=== PATIENT | female | born 1975 | race American Indian/Alaskan Native ===

== ENCOUNTER 2017-04-06 06:11 | Outpatient (CLI) | payer BC ==
--- NOTE | 2017-04-06 09:20 | XRay Report ---
ROUTINE CHEST, TWO VIEWS: Cough PA and lateral views demonstrate the heart and mediastinal contour to be of normal size and shape. The lungs are clear and fully expanded and the soft tissues and bony structures are normal. IMPRESSION: Normal study.
== END 2017-04-06 06:12 | disposition home or self-care (01) ==
LOC: XRAY 06:11
PROVIDERS: ATTEND Nurse Practitioner Family
DX: R05 Cough (principal)
CPT/HCPCS: 71020

== ENCOUNTER 2017-05-04 05:46 | Outpatient (CLI) | payer BC ==
--- NOTE | 2017-05-04 08:37 | Mammography Report ---
Screening mammogram: Routine views demonstrate a well circumscribed focal asymmetry in the inferomedial anterior left breast. The remaining breast pattern is heterogeneously dense, symmetrically distributed, and unremarkable. CAD used. Impression: Focal left asymmetry. Recommendation: This patient's prior studies the rest of comparison. The followup will be shielded within 30 days if made available. If no report is received left breast ultrasound recommended and additional compression imaging of the breast if necessary following the ultrasound. BI-RADS CATEGORY: 0 = Needs additional imaging evaluation ACR BI-RADS MAMMOGRAPHIC CODES: 0 = Needs additional imaging evaluation; 1 = Negative; 2 = Benign; 3 = Probably benign; 4 = Suspicious; 5 = Malignant; 6 = Known biopsy-proven malignancy COMMENT: 1. Dense breast tissue, i.e., adenosis, fibrocystic changes, etc., may obscure an underlying neoplasm. 2. Approximately 10% of cancers are not detected with mammography. 3. A negative mammography report should not delay biopsy if a clinically suspicious mass is present. A
== END 2017-05-04 05:47 | disposition home or self-care (01) ==
LOC: MAMMO 05:46
PROVIDERS: ATTEND Surgery Plastic and Reconstructive Surgery
DX: Z12.31 Encounter for screening mammogram for malignant neoplasm of breast (principal); I10 Essential (primary) hypertension
CPT/HCPCS: 77067; G0202

== ENCOUNTER 2017-07-13 05:41 | Outpatient (CLI) | payer BC ==
--- NOTE | 2017-07-13 09:16 | Mammography Report ---
BILATERAL DIGITAL DIAGNOSTIC MAMMOGRAM and LEFT BREAST ULTRASOUND: 07/13/17 05:41:00 CLINICAL: Recalled for bilateral asymmetries. COMPARISON:05/04/17 screening FINDINGS: Bilateral spot compression views were performed. Satisfactory effacement of right asymmetry on the MLO view. An oval smooth low density mass or cyst persist at 10 o'clock on the left spot views. Ultrasound of the left breast was performed and demonstrated an oval smooth solid heterogeneous hypoechoic mass at 10 o'clock 4 cm from the nipple. It measures 8 x 8 x 6 mm and correlates with the mammographic density. IMPRESSION: A probably benign solid 8mm mass at 10 o'clock 4 cm from the nipple. Sonographic features suggests benign fibroadenoma. BI-RADS CATEGORY: 3 - - Probably Benign RECOMMENDATION: Six month followup left breast ultrasound. ACR BI-RADS MAMMOGRAPHIC CODES: 0 = Needs additional imaging evaluation; 1 = Negative; 2 = Benign; 3 = Probably benign; 4 = Suspicious; 5 = Malignant; 6 = Known biopsy-proven malignancy COMMENT: 1. Dense breast tissue, i.e., adenosis, fibrocystic changes, etc., may obscure an underlying neoplasm. 2. Approximately 10% of cancers are not detected with mammography. 3. A negative mammography report should not delay biopsy if a clinically suspicious mass is present. COMMENT: Patient follow-up letters are generated via our [employer] application.
== END 2017-07-13 05:42 | disposition home or self-care (01) ==
LOC: MAMMO 05:41
PROVIDERS: ATTEND Family Medicine
DX: N63 Unspecified lump in breast (principal); I10 Essential (primary) hypertension; E03.9 Hypothyroidism, unspecified
CPT/HCPCS: 76642; G0204; 77066

== ENCOUNTER 2018-04-16 05:42 | Outpatient (CLI) | payer BC ==
--- NOTE | 2018-04-16 08:22 | Ultrasound Report ---
LEFT BREAST ULTRASOUND: 04/16/18 CLINICAL: Six month followup COMPARISON: 07/13/17 FINDINGS: Ultrasound of the left breast demonstrated a slightly larger mass with a slightly different shape with a new bulbous projection. It measures 1.1 x 0.7 x 0.8 cm compared to 0.8 x 0.8 x 0.6 cm. It has low level internal echoes and demonstrates no posterior enhancement. There is edge shadowing. IMPRESSION: A slightly larger solid mass versus complex cyst at 10 o'clock 4 cm from the nipple. Recommend ultrasound guided needle aspiration and ultrasound guided needle core biopsy if it does not collapse with needle aspiration. BI-RADS 4A--Mildly Suspicious The patient was notified of the recommendation at the time of examination.
== END 2018-04-16 05:43 | disposition home or self-care (01) ==
LOC: MAMMO 05:42
PROVIDERS: ATTEND Surgery Plastic and Reconstructive Surgery
DX: R92.8 Other abnormal and inconclusive findings on diagnostic imaging of breast (principal)

== ENCOUNTER 2018-04-25 11:35 | Outpatient (CLI) | payer BC ==
--- NOTE | 2018-04-25 12:06 | XRay Report ---
ROUTINE CHEST, TWO VIEWS: Hypertension. PA and lateral views demonstrate the heart and mediastinal contour to be of normal size and shape. The lungs are clear and fully expanded and the soft tissues and bony structures are normal. IMPRESSION: Normal study.
== END 2018-04-25 11:36 | disposition home or self-care (01) ==
LOC: XRAY 11:35
PROVIDERS: ATTEND Surgery Plastic and Reconstructive Surgery
DX: I10 Essential (primary) hypertension (principal); E03.9 Hypothyroidism, unspecified; Z79.899 Other long term (current) drug therapy
CPT/HCPCS: 71046

== ENCOUNTER 2018-05-28 12:35 | Outpatient (CLI) | payer BC ==
--- NOTE | 2018-05-28 14:32 | Mammography Report ---
LEFT DIGITAL DIAGNOSTIC MAMMOGRAM: 05/28/18 12:35:00 CLINICAL: For clip placement immediately status post ultrasound biopsy. COMPARISON:07/13/17 FINDINGS: A biopsy clip is now identified at 10 o'clock 4 cm from the nipple and the previously described lesion is not identified. IMPRESSION: Concordant clip placement status post ultrasound biopsy. BI-RADS CATEGORY: 4--Suspicious Pathology pending.
--- NOTE | 2018-05-28 16:34 | Ultrasound Report ---
ULTRASOUND GUIDED NEEDLE ASPIRATION AND ULTRASOUND GUIDED NEEDLE CORE BIOPSY LEFT BREAST WITH CLIP PLACEMENT: 05/28/18 CLINICAL: A complex cyst versus solid mass at 10 o'clock 4 centimeters from the nipple. COMPARISON :04/16/18 FINDINGS: The procedure was explained to the patient and informed consent was obtained. Ultrasound demonstrated the previously described relatively anechoic lesion. I marked the breast with a felt tip marker and a time out was called. The skin was prepped with Betadine and anesthetized with 1% lidocaine. Deep anesthesia was achieved with 2% lidocaine with epinephrine. Ultrasound guided needle aspiration was attempted unsuccessfully using an 18-gauge needle. Only a small amount of fluid could be aspirated and the lesion showed no collapse. The fluid was placed in Cytolyte and was sent to the lab for analysis. Needle core biopsy was then performed through a tiny dermatotomy using ultrasound guidance, 2% lidocaine with epinephrine for deep anesthesia and a 14-gauge Achieve biopsy device. 3 cores were obtained and placed in formalin. A clip was deployed within the mass. The patient tolerated the procedure well and there were no apparent complications. Hemostasis was achieved with minimal pressure and a sterile dressing was applied. A two view mammogram demonstrated satisfactory clip deployment. She left the department in good condition and was given instructions for wound care and followup. IMPRESSION: Uncomplicated ultrasound guided needle aspiration and core biopsy with clip placement left breast.
== END 2018-05-28 12:36 | disposition home or self-care (01) ==
LOC: SPVWC 12:35
PROVIDERS: ATTEND Surgery Plastic and Reconstructive Surgery
DX: N63.0 Unspecified lump in unspecified breast (principal)
CPT/HCPCS: 19000; 19083; 77065; 88112; 88305; A4648

== ENCOUNTER 2018-06-27 08:16 | Outpatient (CLI) | payer BC ==
--- NOTE | 2018-06-27 14:00 | XRay Report ---
LEFT KNEE, 3 views: History: Left knee pain. Normal bone mineralization. Early medial compartment joint space narrowing and spurring is identified. The lateral compartment and patellofemoral space are unremarkable. No obvious joint effusion. IMPRESSION: Early medial compartment osteoarthritis.
== END 2018-06-27 08:17 | disposition home or self-care (01) ==
LOC: XRAY 08:16
PROVIDERS: ATTEND Family Medicine
DX: M17.12 Unilateral primary osteoarthritis, left knee (principal); I10 Essential (primary) hypertension; E03.9 Hypothyroidism, unspecified

== ENCOUNTER 2019-05-29 09:48 | Outpatient (CLI) | payer BC | END 2019-05-29 09:49 | disposition home or self-care (01) | LOC: LAB 09:48 | PROVIDERS: ATTEND Nurse Practitioner Family | DX: E11.9 Type 2 diabetes mellitus without complications (principal); I10 Essential (primary) hypertension; E03.9 Hypothyroidism, unspecified | CPT/HCPCS: 36415; 83036 ==

== ENCOUNTER 2019-09-10 10:27 | Outpatient (CLI) | payer BC ==
[2019-09-10 10:59] LABS: Basophils # (Auto) 0.1 K/mm3 (0.0-0.1); Basophils % (Auto) 0.9 % (0.0-1.8); Eosinophils # (Auto) 0.2 K/mm3 (0.0-0.4); Eosinophils % (Auto) 1.9 % (0.0-4.3); Hematocrit 37.1 % (30.3-42.9); Hemoglobin 12.2 gm/dl (10.1-14.3); Lymphocytes # (Auto) 2.4 K/mm3 (1.2-5.4); Lymphocytes % (Auto) 30.8 % (13.4-35.0); Mean Corpuscular HGB Conc 33 % (30-34); Mean Corpuscular Volume 80 fl (79-97); Monocytes # (Auto) 0.3 K/mm3 (0.0-0.8); Monocytes % (Auto) 3.5 % (0.0-7.3); Platelet Count 352 K/mm3 (140-440); Red Blood Count 4.64 M/mm3 (3.65-5.03); Red Cell Distribution Width 18.4 % (13.2-15.2)
[2019-09-10 11:13] LABS: BUN/Creatinine Ratio 16; Blood Urea Nitrogen 13 mg/dL (7-17); Chol/HDL Ratio 3.55 %; HDL Cholesterol 54 mg/dL (40-59); Hemolysis Index 0; LDL Cholesterol,Direct 134 mg/dL (50-130)
[2019-09-10 11:15] LABS: Alanine Aminotransferase < 5 units/L (7-56)
[2019-09-10 11:36] LABS: Free T4 (Free Thyroxine) 1.25 ng/dL (0.76-1.46)
== END 2019-09-10 10:28 | disposition home or self-care (01) ==
LOC: LAB 10:27
PROVIDERS: ATTEND Family Medicine
DX: E03.4 Atrophy of thyroid (acquired) (principal); D64.9 Anemia, unspecified; I10 Essential (primary) hypertension; E78.1 Pure hyperglyceridemia; A60.00 Herpesviral infection of urogenital system, unspecified; E11.9 Type 2 diabetes mellitus without complications; Z79.899 Other long term (current) drug therapy
CPT/HCPCS: 36415; 80053; 80061; 83036; 84439; 84443; 85025

== ENCOUNTER 2019-12-16 12:49 | Outpatient (CLI) | payer BC ==
--- NOTE | 2019-12-16 14:50 | XRay Report ---
XR shoulder 2+V LT INDICATION / CLINICAL INFORMATION: Left shoulder pain. COMPARISON: None available. FINDINGS: BONES/JOINT(S): No acute fracture or subluxation. No significant degenerative changes. No focal bone lesions. SOFT TISSUES: No significant abnormality. ADDITIONAL FINDINGS: None. Signer Name: Lio Arana MD Signed: 12/16/2019 2:45 PM Workstation Name: [id number]
== END 2019-12-16 12:50 | disposition home or self-care (01) ==
LOC: XRAY 12:49
DX: M25.512 Pain in left shoulder (principal)

== ENCOUNTER 2020-11-01 09:36 | Outpatient (CLI) | payer BC ==
--- NOTE | 2020-11-01 12:34 | Magnetic Resonance Report ---
MRI LEFT SHOULDER WITHOUT CONTRAST INDICATION / CLINICAL INFORMATION: LEFT SHOULDER PAIN. TECHNIQUE: Multiplanar, multisequence MR images were obtained. No contrast used. COMPARISON: Radiographs of the left shoulder dated 12/16/2019. FINDINGS: SUPRASPINATUS: There is a low-grade partial thickness articular surface tear involving the posterior supraspinatus tendon at the footplate. No tendon retraction or muscle atrophy. INFRASPINATUS: Tendinosis without tear. SUBSCAPULARIS: No significant abnormality. BICEPS TENDON, LONG HEAD: Tendinosis without tear. GLENOID LABRUM: There is a small tear of the superior labrum. No paralabral cyst. ARTICULAR CARTILAGE: Mild to moderate glenohumeral joint chondrosis. JOINT SPACE AND CAPSULE: Moderate sized joint effusion with mild synovitis. ACROMION and A.C. JOINT: Mild acromioclavicular joint degenerative arthrosis producing minimal subacr omial encroachment. SUBACROMIAL/SUBDELTOID SPACE: No significant abnormality. BONES: No significant bone marrow edema. No fracture. No osseous lesion. SOFT TISSUES: No significant abnormality. ADDITIONAL FINDINGS: None. IMPRESSION: 1. Low-grade partial-thickness articular surface tear involving the posterior supraspinatus tendon at the footplate. No tendon retraction or muscle atrophy. 2. Infraspinatus biceps tendinosis. 3. Small SLAP tear. 4. Mild to moderate glenohumeral and AC joint degenerative arthrosis. 5. Moderate sized joint effusion with mild synovitis. Report dictated by: Abdirashid Lora MD Report dictated on: 11/01/2020 11:15 AM I have reviewed the images, agree with this report, and edited this report as needed. Signer Name: Jayshree Loyola MD Signed: 11/01/2020 12:29 PM Workstation Name: [id number]
== END 2020-11-01 09:37 | disposition home or self-care (01) ==
LOC: MRI 09:36
PROVIDERS: ATTEND Orthopaedic Surgery
DX: S46.912A Strain of unspecified muscle, fascia and tendon at shoulder and upper arm level, left arm, initial encounter (principal); S43.432A Superior glenoid labrum lesion of left shoulder, initial encounter; M19.012 Primary osteoarthritis, left shoulder; M25.412 Effusion, left shoulder; M65.812 Other synovitis and tenosynovitis, left shoulder; X58.XXXA Exposure to other specified factors, initial encounter; Y93.89 Activity, other specified; Y92.89 Other specified places as the place of occurrence of the external cause; Y99.8 Other external cause status

== ENCOUNTER 2020-12-21 08:52 | Outpatient (CLI) | payer BC ==
[2020-12-21 09:26] LABS: Basophils # (Auto) 0.1 K/mm3 (0.0-0.1); Basophils % (Auto) 0.8 % (0.0-1.8); Eosinophils # (Auto) 0.2 K/mm3 (0.0-0.4); Eosinophils % (Auto) 2.6 % (0.0-4.3); Hematocrit 36.2 % (30.3-42.9); Hemoglobin 12.1 gm/dl (10.1-14.3); Lymphocytes # (Auto) 2.7 K/mm3 (1.2-5.4); Lymphocytes % (Auto) 30.9 % (13.4-35.0); Mean Corpuscular HGB Conc 34 % (30-34); Mean Corpuscular Volume 85 fl (79-97); Monocytes # (Auto) 0.5 K/mm3 (0.0-0.8); Monocytes % (Auto) 5.4 % (0.0-7.3); Platelet Count 375 K/mm3 (140-440); Red Blood Count 4.26 M/mm3 (3.65-5.03); Red Cell Distribution Width 14.2 % (13.2-15.2)
[2020-12-21 09:49] LABS: Alanine Aminotransferase 11 units/L (7-56); Albumin 4.1 g/dL (3.9-5); Blood Urea Nitrogen 11 mg/dL (7-17); Calcium 9.1 mg/dL (8.4-10.2); Chol/HDL Ratio 3.16 %; HDL Cholesterol 62 mg/dL (40-59); Hemolysis Index 6; LDL Cholesterol,Direct 132 mg/dL (50-130)
[2020-12-21 09:50] LABS: BUN/Creatinine Ratio 16
== END 2020-12-21 08:53 | disposition home or self-care (01) ==
LOC: LAB 08:52
PROVIDERS: ATTEND Nurse Practitioner
DX: E78.1 Pure hyperglyceridemia (principal); I10 Essential (primary) hypertension; E03.9 Hypothyroidism, unspecified; D64.9 Anemia, unspecified; Z86.39 Personal history of other endocrine, nutritional and metabolic disease
CPT/HCPCS: 36415; 80053; 80061; 83036; 84443; 85025

== ENCOUNTER 2021-08-15 09:33 | Outpatient (CLI) | payer BC ==
[2021-08-15 10:16] LABS: Alanine Aminotransferase 16 units/L (7-56); Albumin 3.9 g/dL (3.9-5); Blood Urea Nitrogen 11 mg/dL (7-17); Calcium 8.8 mg/dL (8.4-10.2); HDL Cholesterol 55 mg/dL (40-59); Hemolysis Index 6; LDL Cholesterol,Direct 127 mg/dL (50-130)
[2021-08-15 10:24] LABS: BUN/Creatinine Ratio 16
== END 2021-08-15 09:34 | disposition home or self-care (01) ==
LOC: LAB 09:33
PROVIDERS: ATTEND Nurse Practitioner
DX: I10 Essential (primary) hypertension (principal); E78.1 Pure hyperglyceridemia; Z86.39 Personal history of other endocrine, nutritional and metabolic disease
CPT/HCPCS: 36415; 80053; 80061; 83036; 84443

== ENCOUNTER 2021-09-09 07:21 | Outpatient (CLI) | payer BC | END 2021-09-09 07:22 | disposition home or self-care (01) | LOC: MAMMO 07:21 | PROVIDERS: ATTEND Family Medicine | DX: Z12.31 Encounter for screening mammogram for malignant neoplasm of breast (principal) | CPT/HCPCS: 77067 ==